=== PATIENT | male | born 1980 | race Caucasian/White ===

== ENCOUNTER 2020-01-14 20:42 | Emergency (ER) | payer SELFPAY ==
[2020-01-14] MEDS ORDERED: ONDANSETRON HCL INJ/PF 4 MG/2 ML SDV IV ONE (21:09)
[2020-01-14] MEDS ORDERED: NORMAL SALINE 1000 ML 1,000 ML IV ONE (21:09)
[2020-01-14 21:39] LABS: ABSOLUTE EOSINOPHILS # (AUTO) 0.1 10^3/uL (0.0-0.6); ABSOLUTE LYMPHOCYTES (AUTO) 2.8 10^3/uL (0.5-4.7); ABSOLUTE MONOCYTES (AUTO) 0.7 10^3/uL (0.1-1.4); BASOPHILS % (AUTO) 0.4 % (0-2); EOSINOPHILS % (AUTO) 1.1 % (0-6); HEMATOCRIT 47.1 % (37.9-51.0); HEMOGLOBIN 15.9 g/dL (13.5-17.0); LYMPHOCYTES % (AUTO) 37.1 % (13-45); MEAN CORPUSCULAR HEMOGLOBIN 31.4 pg (27.0-33.4); MEAN CORPUSCULAR HGB CONC 33.8 g/dL (32.0-36.0); MEAN CORPUSCULAR VOLUME 93 fl (80-97); MONOCYTES % (AUTO) 8.7 % (3-13); PLATELET COUNT 232 10^3/uL (150-450); RED BLOOD COUNT 5.07 10^6/uL (4.35-5.55); RED CELL DISTRIBUTION WIDTH 13.9 % (11.5-14.0); SEGMENTED NEUTROPHILS % (AUTO) 52.7 % (42-78); TOTAL CELLS COUNTED % (AUTO) 100 %; WHITE BLOOD COUNT 7.5 10^3/uL (4.0-10.5)
[2020-01-14 21:52] LABS: ALBUMIN 4.8 g/dL (3.5-5.0); ALKALINE PHOSPHATASE 89 U/L (38-126); ANION GAP 11 (5-19); ASPARTATE AMINO TRANSFERASE 23 U/L (17-59); BILIRUBIN,DIRECT 0.3 mg/dL (0.0-0.4); BILIRUBIN,TOTAL 0.5 mg/dL (0.2-1.3); BLOOD UREA NITROGEN 19 mg/dL (7-20); CALCIUM 9.7 mg/dL (8.4-10.2); CARBON DIOXIDE 26 mmol/L (22-30); CHLORIDE 106 mmol/L (98-107); GLUCOSE 111 mg/dL (75-110); TOTAL PROTEIN 7.8 g/dL (6.3-8.2)
--- NOTE | 2020-01-14 23:17 | ER Document Report ---
ED General - General Chief Complaint: Epigastric Pain Stated Complaint: EPIGASTRIC PAIN,SHORTNESS OF BREATH Time Seen by Provider: 01/14/20 22:52 Mode of Arrival: Ambulatory Information source: Patient Notes: Patient is a 39-year-old male comes emergency room complaining of heartburn type symptoms. Patient states that he started approximately 2 days ago with a little heartburn and took some antiacids and went away. Tonight prior to coming in he had a sudden onset of severe abdominal burning. He took the acid reducers again but it did not go away as quickly. This occurred starting about 8 PM tonight and lasted until 11 PM while here in ER went away completely. Patient's most recent past medical history pertinent for a gastric sleeve done in July of this past year. States he has been doing well with it. Does state he is increased his intake of alcohol since he is down here from [place] on vacation for the past week but states is not been heavy just more than usual. He has been averaging about 1 beer a day. He states it is midepigastric to left side and sometimes feels like it was behind the back. He denies any past medical cardiac history but states that his grandfather in his late 60s and his father in his mid 50s of heart problems. Patient is not a smoker. He denies any recent history of diabetes since the gastric sleeve he is lost good weight and is feeling better. He also has had some diarrhea for the past couple of days but that is seem to cleared up as well. No bowel movement today. Patient is not a smoker. TRAVEL OUTSIDE OF THE [place] IN LAST 30 DAYS: No - HPI Onset: This evening Onset/Duration: Intermittent, Better Quality of pain: Achy, Sharp - Related Data Allergies/Adverse Reactions: diphenhydramine [From Benadryl] Allergy (Verified 01/14/20 23:19) Past Medical History - General Information source: Patient - Vaccinated - Social History Smoking Status: Never Smoker Cigarette use (# per day): No Chew tobacco use (# tins/day): No Smoking Education Provided: No Frequency of alcohol use: None Drug Abuse: None Lives with: Family Family History: CAD Patient has suicidal ideation: No Patient has homicidal ideation: No Review of Systems - Review of Systems Constitutional: No symptoms reported EENT: No symptoms reported Cardiovascular: See HPI, Chest pain Respiratory: No symptoms reported Gastrointestinal: See HPI, Abdominal pain Genitourinary: No symptoms reported Male Genitourinary: No symptoms reported Musculoskeletal: No symptoms reported Skin: No symptoms reported Hematologic/Lymphatic: No symptoms reported Neurological/Psychological: No symptoms reported -: Yes All other systems reviewed and negative Physical Exam - Vital signs Vitals: Temp Pulse Resp BP Pulse Ox 97.6 F 49 L 22 H 152/97 H 100 01/14/20 20:52 01/14/20 20:52 01/14/20 20:52 01/14/20 20:52 01/14/20 20:52 Interpretation: Hypertensive, Bradycardic - Notes Notes: PHYSICAL EXAMINATION: GENERAL: Patient is a well-nourished well-developed 39-year-old male no apparent distress on physical exam tonight. Patient does appear somewhat uncomfortable. HEAD: Atraumatic, normocephalic. NECK: Normal range of motion, supple without lymphadenopathy LUNGS: Breath sounds clear to auscultation bilaterally and equal. No wheezes rales or rhonchi. HEART: Bradycardic rate and rhythm without murmurs ABDOMEN: Examination patient's abdomen shows it to be mildly tender midepigastric to palpation. There is no reproducible tenderness on the lateral aspect of the abdominal area. Bowel sounds are present all 4 quads. Musculoskeletal: Normal range of motion, no pitting or edema. No cyanosis. NEUROLOGICAL: Normal speech, normal gait. Normal sensory, motor exams PSYCH: Normal mood, normal affect. SKIN: Warm, Dry, normal turgor, no rashes or lesions noted. Course - Re-evaluation Re-evalutation: 01/15/20 02:00 Patient's work-up was negative. The only abnormalities were found were his hear t rate was into the mid 50s but in talking to patient his is informed him that he runs in the low to mid 50s. He is not on any medication that would do this but has been going on for some time. Also patient was found to have moderate amount of blood in his urine. When I went to discuss this with him he states that ever since he was a kid he has had blood in his urine and they have not build to find out why and that is not an unusual finding as well. Patient has not had any type of pain or discomfort since his been in the emergency room. His work-up included an EKG that just showed a bradycardia. The troponins x2 were both negative. He is headed back to [place] his is driving and leaving from the emergency room to go back home and he wants to follow-up with his primary. Patient only agreed to stay to let me complete to the second troponin to make sure was not normal and since it is he wants to leave. He will follow-up with his primary care provider on getting back to [place] at the first of the week. He has been instructed to return to an ER or go directly to ER if the pain or discomfort or shortness of breath returns. Patient was not given any signs or symptoms of COVID-19 no fevers were noted. He is not been any contact with anyone that he knows of and is wearing a mask all the time. - Vital Signs Vital signs: Temp Pulse Resp BP Pulse Ox 97.6 F 49 L 18 116/77 98 01/14/20 20:52 01/14/20 20:52 01/15/20 02:01 01/15/20 02:01 01/15/20 02:01 - Laboratory Result Diagrams: 01/14/20 21:25 01/14/20 21:25 Laboratory results interpreted by me: 01/14/20 01/14/20 21:25 23:54 Glucose 111 H Urine Ketones 20 H Urine Blood MODERATE H Discharge - Discharge Clinical Impression: Esophagitis, Atypical chest pain Disposition: HOME, SELF-CARE Instructions: Prilosec (Acid Pump Inhibitor) ([facility]), Reflux Disease (GERD) ([facility]), Sucralfate ([facility]) Additional Instructions: As we discussed it is highly important with your family history still follow-up with your primary care and returning back to [place]. I am also can write you for some medication that should help with the esophagitis. Also contact your gastric surgeon just to have a follow-up visit to make sure all that is doing is supposed to. On the way home should you become short of breath or have any other concerns stop at the nearest ER for reevaluation. Prescriptions: Sucralfate [Carafate 1 gm Tablet] 1 gm PO ACHS #60 tablet
--- NOTE | 2020-01-14 23:32 | EKG REPORT ---
SEVERITY:- NORMAL ECG - SINUS RHYTHM : Confirmed by: Agata Jennings MD 14-Jan-2020 23:32:11
--- NOTE | 2020-01-15 00:13 | RADIOLOGY REPORT (SQ) ---
EXAM DESCRIPTION: Single view of the chest and two views of the abdomen. X-ray. CLINICAL HISTORY: 39 years Male, mid epigastric pain COMPARISON: None. FINDINGS: Chest: Lungs are clear. Heart size is normal. No pneumonia or edema. No pneumothorax or pleural effusion. No free intraperitoneal air. ABDOMEN: Scattered stool is present in the stomach:. There is a small amount of air seen throughout the colon as well as the small bowel. The bowel is not dilated. No air-fluid levels or free intraperitoneal air. No suspicious calcifications. Air and stool are present in the rectal vault. Osseous structures are unremarkable. IMPRESSION: Unremarkable single view of the chest. Unremarkable radiographs of the abdomen. No obstruction or free air.
[2020-01-15 00:18] LABS: APPEARANCE,URINE CLEAR; BILIRUBIN,URINE NEGATIVE (NEGATIVE); COLOR,URINE YELLOW; GLUCOSE, URINE NEGATIVE (NEGATIVE); KETONES,URINE 20 mg/dL (NEGATIVE); LEUKOCYTE ESTERASE,URINE NEGATIVE (NEGATIVE); NITRITE,URINE NEGATIVE (NEGATIVE); PROTEIN,URINE NEGATIVE (NEGATIVE); URINE SPECIFIC GRAVITY 1.023; UROBILINOGEN,URINE NEGATIVE mg/dL (<2.0)
[2020-01-15 02:18] VITALS: BP 116/77
== END 2020-01-15 02:18 | disposition home or self-care (01) ==
LOC: ER 20:42
DX: K20.9 Esophagitis, unspecified (principal); R07.89 Other chest pain; R10.13 Epigastric pain; R06.02 Shortness of breath; R10.9 Unspecified abdominal pain; Z88.8 Allergy status to other drugs, medicaments and biological substances
CPT/HCPCS: 93005; 99285; 96361; 96374; 36415; 85025; 80053; 81001; 84484; 74022; 93010; J2405; J7030